=== PATIENT | female | born 1995 | race African-American/Black ===

== ENCOUNTER 2017-01-24 17:08 | Emergency (ER) | payer MEDICAID ==
[~2017-01-24] VITALS: Ht 167.6 cm; Wt 59.0 kg
[2017-01-24 17:32] VITALS: BP 122/84
--- NOTE | 2017-01-24 17:39 | NUR ---
Patient ambulated to bed 5. RN evaluating patient at bedside.
--- NOTE | 2017-01-24 17:44 | NUR ---
PT CAME TO ER DUE TO MECHANICAL FALL TODAY, ABRASION TO CHIN---DENIES KO C/O RIGHT SIDE JAW PAIN;HEMATOMA NOTED ON CHIN;HX ANXIETY, ASTHMA;DENIES DIZZINESS/N/V/;AAOX4;NO ACUTE DISTRESS NOTED;UNLABORED BREATHING W/ SYMMETRICAL CHEST EXPANSION;HOB ELEVATED;NEEDS ATTENDED;SAFETY MEASURES DONE;MD AT BEDSIDE.
--- NOTE | 2017-01-24 17:46 | NUR ---
Dr. Miller evaluating patient at bedside.
[2017-01-24] MEDS ORDERED: NEOMYCIN/POLYMYXIN/BACITRACIN 0.9 GM/1 PKT TP ONE (17:52)
--- NOTE | 2017-01-24 17:59 | NUR ---
Patient discharged with v/s stable. Written and verbal after care instructions given and explained. Patient alert, oriented and verbalized understanding of instructions. Ambulatory with steady gait. All questions addressed prior to discharge. ID band removed. Patient advised to follow up with PMD. Rx of ALBUTEROL AND QVAR FOR ASTHMA given. Patient educated on indication of medication including possible reaction and side effects. Opportunity to ask questions provided and answered.ADVISED PT TO PUT ICE ON HER CHIN TO REDUCE SWELLING.
[2017-01-24 18:01] VITALS: BP 118/82
== END 2017-01-24 17:59 | disposition home or self-care (01) ==
LOC: MED 17:08
DX: S00.81XA Abrasion of other part of head, initial encounter (principal); J45.909 Unspecified asthma, uncomplicated; F41.9 Anxiety disorder, unspecified; X58.XXXA Exposure to other specified factors, initial encounter; Y93.89 Activity, other specified; Y92.89 Other specified places as the place of occurrence of the external cause; Y99.8 Other external cause status
CPT/HCPCS: 99283